=== PATIENT | female | born 1975 | race African-American/Black ===

== ENCOUNTER 2016-10-30 18:37 | Emergency (ER) | payer OTHER ==
[~2016-10-30] VITALS: Ht 165.1 cm; Wt 70.3 kg
--- NOTE | 2016-10-30 19:07 | PHYS DOC ---
Past Medical History Past Medical History: Other Additional Past Medical Histor: BIPOLAR, DEPRESSION Past Surgical History: No Surgical History Additional Past Surgical Histo: right arm wound Alcohol Use: Occasionally Drug Use: None Adult General Chief Complaint Chief Complaint: ALLERGIC REACTION HPI HPI Patient is a 40 year old female who presents with c/o tongue swelling. Patient reports this morning she had onset of tongue swelling. No clear inciting or mitigating factors. No difficulty breathing. No new meds. No prior similar episodes. No rash or other acute complaints. Review of Systems Review of Systems Constitutional: Denies fever or chills Eyes: Denies change in visual acuity or eye pain HENT: Tongue swellnig. Denies nasal congestion or sore throat Respiratory: Denies cough or shortness of breath Cardiovascular: Denies chest pain GI: Denies abdominal pain, nausea, vomiting, bloody stools or diarrhea : Denies dysuria or hematuria Musculoskeletal: Denies back pain or joint pain Integument: Denies rash or skin lesions Neurologic: Denies headache, focal weakness or sensory changes Psych: Denies SI/HI Current Medications Current Medications Current Medications Medications (Trade) Dose Ordered Sig/Fiorella Start Time Stop Time Status Last Admin Dose Admin Diphenhydramine HCl (Benadryl) 50 mg 1X ONCE 10/30/16 19:15 10/30/16 19:16 DC 10/30/16 19:32 50 MG Prednisone (Prednisone) 60 mg 1X ONCE 10/30/16 19:15 10/30/16 19:16 DC 10/30/16 19:32 60 MG Allergies Allergies Allergies Coded Allergies Type Severity Reaction Last Updated Verified Penicillins Allergy Intermediate Rash 09/26/15 Yes Physical Exam Physical Exam Constitutional: Well developed, well nourished, no acute distress, non-toxic appearance HENT: Normocephalic, atraumatic. Tongue minimally swollen if at all; airway widely patent; no lip or facial swelling Eyes: EOMI, conjunctiva normal, no discharge Neck: Normal range of motion, no stridor Cardiovascular: Heart rate normal, regular rhythm, no murmur Lungs & Thorax: Bilateral breath sounds clear to auscultation Abdomen: Bowel sounds normal, soft, non-distended, no TTP Skin: Warm, dry, no erythema, no rash Neurologic: Alert and oriented X 3, no gross deficits noted Psychologic: Flat affect Current Patient Data Vital Signs Vital Signs Date Time Temp Pulse Resp B/P Pulse Ox O2 Delivery O2 Flow Rate FiO2 10/30/16 19:30 82 14 127/76 100 Room Air 10/30/16 18:37 99.6 99.6 EKG EKG [] Radiology/Procedures Radiology/Procedures [] Course & Med Decision Making Course & Med Decision Making Pertinent Labs and Imaging studies reviewed. (See chart for details) Patient is 40-year-old female who presents with complaint of tongue swelling. No significant tongue swelling noted on my exam. Airway widely patent, no stridor noted. However will go ahead and treat with steroids and Benadryl. Patient observed in emergency department for period of time. No progression of swelling noted. Will discharge with short course of steroids and Benadryl, instructions follow-up, strict return precautions. Dragon Disclaimer Dragon Disclaimer This electronic medical record was generated, in whole or in part, using a voice recognition dictation system. Departure Departure Impression: Primary Impression: Tongue swelling Disposition: HOME, SELF-CARE Condition: STABLE Referrals: NO PCP (PCP) Patient Instructions: Diphenhydramine capsules or tablets, Prednisone tablets Additional Instructions: Thank you for allowing us to provide care today in the Emergency Department. Take the provided medication as directed. Do not take your hydroxyzine while you 're taking the Benadryl. Schedule a follow up appointment with your primary care doctor. Return promptly to the Emergency Department if you develop any new or concerning symptoms, such as difficulty breathing. Scripts Diphenhydramine Hcl (Benadryl)25 Mg [id number] Mg PO Q6HRS 3 Days Prov:ANTWAN CUEVAS MD 10/30/16 Prednisone 50 Mg Tablet1 Tab PO DAILY #3 TAB start taking 10/31/16 Prov:ANTWAN CUEVAS MD 10/30/16 ANTWAN CUEVAS MD Oct 30, 2016 19:07
[2016-10-30] MEDS ORDERED: PREDNISONE 20 MG TABLET PO ONE (19:15)
[2016-10-30] MEDS ORDERED: DIPHENHYDRAMINE HCL 25 MG CAPSULE PO ONE (19:15)
[2016-10-30 19:30] VITALS: BP 127/76
[2016-10-30] MEDS ORDERED: DIPH25CA58 PO (19:42)
[2016-10-30] MEDS ORDERED: PRED50TA PO (19:42)
== END 2016-10-30 19:53 | disposition home or self-care (01) ==
LOC: ER 18:37
DX: K14.8 Other diseases of tongue (principal); F31.9 Bipolar disorder, unspecified; Z88.0 Allergy status to penicillin
CPT/HCPCS: 99284; J7512; Q0163

== ENCOUNTER 2016-11-06 19:30 | Emergency (ER) | payer OTHER ==
[~2016-11-06] VITALS: Ht 165.1 cm; Wt 70.3 kg
[~2016-11-06 19:30] MED LIST: DIPH25CA58 PO; PRED50TA PO
[2016-11-06 19:56] VITALS: BP 115/85
[2016-11-06 20:24] LABS: BILIRUBIN,URINE NEGATIVE (NEG); GLUCOSE,URINE NEGATIVE (NEG); NITRITE,URINE NEGATIVE (NEG); PROTEIN,URINE NEGATIVE (NEG-TRACE)
[2016-11-06 20:31] LABS: BARBITURATES NEG (NEG); BENZODIAZEPINES NEG (NEG); CANNABINOIDS NEG (NEG); COCAINE POS (NEG); METHADONE NEG (NEG); OPIATES NEG (NEG); PHENCYCLIDINE NEG (NEG)
[2016-11-06 20:32] LABS: BACTERIA,URINE FEW /HPF (0-FEW); RBC,URINE 20-40 /HPF (0-2); SQUAMOUS EPITHELIAL CELL,UR MOD /LPF
[2016-11-06 20:37] LABS: ETHANOL, URINE NEG (NEG)
--- NOTE | 2016-11-06 20:44 | PHYS DOC ---
Past Medical History Past Medical History: Other Additional Past Medical Histor: BIPOLAR, DEPRESSION Past Surgical History: No Surgical History Additional Past Surgical Histo: right arm wound Alcohol Use: Occasionally Drug Use: None Adult General Chief Complaint Chief Complaint: URINARY FREQUENCY HPI HPI Patient is a 40 year old female presents emergency Department today with complaint of dysuria began approximately week ago. She denies vaginal discharge. Patient states that she began her menstrual cycle approximately 3 days ago. Patient states that she is sexually active. Review of Systems Review of Systems Constitutional: Denies fever or chills [] Eyes: Denies change in visual acuity, redness, or eye pain [] HENT: Denies nasal congestion or sore throat [] Respiratory: Denies cough or shortness of breath [] Cardiovascular: No additional information not addressed in HPI [] GI: Denies abdominal pain, nausea, vomiting, bloody stools or diarrhea [] : Denies dysuria or hematuria [] Musculoskeletal: Denies back pain or joint pain [] Integument: Denies rash or skin lesions [] Neurologic: Denies headache, focal weakness or sensory changes [] Endocrine: Denies polyuria or polydipsia [] Allergies Allergies Allergies Coded Allergies Type Severity Reaction Last Updated Verified Penicillins Allergy Intermediate Rash 09/26/15 Yes Physical Exam Physical Exam Constitutional: Well developed, well nourished, no acute distress, non-toxic appearance. Patient's initial, to me, "Hey Doc, let's get these legs spread and get things checked out!" HENT: Normocephalic, atraumatic, bilateral external ears normal, oropharynx moist, no oral exudates, nose normal. [] Eyes: PERRLA, EOMI, conjunctiva normal, no discharge. [] Neck: Normal range of motion, no tenderness, supple, no stridor. [] Cardiovascular:Heart rate regular rhythm, no murmur [] Lungs & Thorax: Bilateral breath sounds clear to auscultation [] Abdomen: Bowel sounds normal, soft, no tenderness, no masses, no pulsatile masses. [] Skin: Warm, dry, no erythema, no rash. [] Back: No tenderness, no CVA tenderness. [] Extremities: No tenderness, no cyanosis, no clubbing, ROM intact, no edema. [] Neurologic: Alert and oriented X 3, normal motor function, normal sensory function, no focal deficits noted. [] Psychologic: Patient's behavior is erratic. She is loud and uses sling terms for private area. She is somewhat easily redirected. Current Patient Data Vital Signs Vital Signs Date Time Temp Pulse Resp B/P Pulse Ox O2 Delivery O2 Flow Rate FiO2 11/06/16 19:56 97.9 112 14 99 Room Air 97.9 Lab Values Laboratory Tests Test 11/06/16 19:13 11/06/16 19:48 POC Urine HCG, Qualitative Hcg negative (Negative) Urine Collection Type Unknown Urine Color Yellow Urine Clarity Clear Urine pH 7.0 Urine Specific [place] 1.020 Urine Protein Negativemg/dL (NEG-TRACE) Urine Glucose (UA) Negativemg/dL (NEG) Urine Ketones (Stick) Negativemg/dL (NEG) Urine Blood Large (NEG) Urine Nitrite Negative (NEG) Urine Bilirubin Negative (NEG) Urine Urobilinogen Dipstick 1.0mg/dL (0.2 mg/dL) Urine Leukocyte Esterase Small (NEG) Urine RBC 20-40/HPF (0-2) Urine WBC 1-4/HPF (0-4) Urine Squamous Epithelial Cells Mod/LPF Urine Bacteria Few/HPF (0-FEW) Urine Mucus Slight/LPF Urine Opiates Screen Neg (NEG) Urine Methadone Screen Neg (NEG) Urine Barbiturates Neg (NEG) Urine Phencyclidine Screen Neg (NEG) Urine Amphetamine/Methamphetamine Neg (NEG) Urine Benzodiazepines Screen Neg (NEG) Urine Cocaine Screen Pos (NEG) Urine Cannabinoids Screen Neg (NEG) Urine Ethyl Alcohol Neg (NEG) EKG EKG [] Radiology/Procedures Radiology/Procedures [] Course & Med Decision Making Course & Med Decision Making Patient's erratic behavior poses a risk to the staff in this department. Urine, urine , urine chlamydia and gonorrhea screening and urine drug screen have been ordered. Once these initial test results are available, I will go back and speak to her with the nurse in the room. Patient refused to keep the door opening was attempting to walk around the emergency department. I went and talked to the patient about her urine test with no evidence of a urinary tract infection as well as the fact that we would go ahead and order up 2 g of azithromycin here since she is allergic to penicillin. Patient resisted against keep in the door closed. She then turned to walk away and proceeded to put her pants on. I did asked the patient was last time she used cocaine. She refuses to answer the question. I did make her aware that she tested positive for that and that is probably the reason why she is acting erratic care the emergency Department today. Cleopatra Disclaimer Cleopatra Disclaimer This electronic medical record was generated, in whole or in part, using a voice recognition dictation system. Departure Departure Impression: Primary Impression: Dysuria Additional Impressions: Cocaine abuse Concern about STD in female without diagnosis Disposition: 01 HOME, SELF-CARE Condition: STABLE Referrals: NO PCP (PCP) Patient Instructions: Cocaine Abuse-Brief, Dysuria-Brief Additional Instructions: 1. Your urine test today showed no evidence of a urinary tract infection. You expressed a concern for STDs. Those results will not be available for 2-3 days. 2. You received a dose of an antibiotic here in the emergency room called azithromycin. The dose given will cover both gonorrhea and chlamydia. 3. Urine drug screen today is positive for cocaine. 4. Review the discharge instructions provided for self-care and reasons to return to the emergency department. Problem Qualifiers REBECCA WELDON Nov 06, 2016 20:44
[2016-11-06] MEDS ORDERED: AZITHROMYCIN 250 MG TABLET PO ONE (21:30)
== END 2016-11-06 21:17 | disposition home or self-care (01) ==
LOC: ER 19:30
DX: R30.0 Dysuria (principal); F14.10 Cocaine abuse, uncomplicated; Z88.0 Allergy status to penicillin
CPT/HCPCS: 80305; 81001; 81025; 87086; 87491; 87591; 99284; Q0144; G0481

== ENCOUNTER 2017-01-19 22:54 | Emergency (ER) | payer OTHER ==
[~2017-01-19] VITALS: Ht 167.6 cm; Wt 73.0 kg
[2017-01-19 23:05] VITALS: BP 128/80
[2017-01-19 23:10] LABS: BILIRUBIN,URINE NEGATIVE (NEG); GLUCOSE,URINE NEGATIVE (NEG); NITRITE,URINE NEGATIVE (NEG); PH,URINE 5.5; PROTEIN,URINE NEGATIVE (NEG-TRACE); UROBILINOGEN,URINE 0.2 mg/dL (0.2 mg/dL)
[2017-01-19 23:17] LABS: BACTERIA,URINE FEW /HPF (0-FEW); RBC,URINE TNTC /HPF (0-2)
[2017-01-19 23:18] LABS: SQUAMOUS EPITHELIAL CELL,UR FEW /LPF
[2017-01-19] MEDS ORDERED: GUAI-42 PO (23:18)
[2017-01-19] MEDS ORDERED: CIPR500T94 PO (23:18)
[2017-01-19] MEDS ORDERED: PHEN-318 PO (23:18)
--- NOTE | 2017-01-19 23:18 | PHYS DOC ---
Past Medical History Past Medical History: Arthritis, Bipolar, GERD, Other Additional Past Medical Histor: BIPOLAR, DEPRESSION Past Surgical History: No Surgical History, Additional Past Surgical Histo: right arm wound Smoking: Cigarettes, 1 Pack Per Day Alcohol Use: Occasionally Drug Use: None Adult General Chief Complaint Chief Complaint: PAIN ON URINATION [facility] Patient is a pleasant 41-year-old self-proclaimed not female without a prior history of tubal ligation presents with UTI symptoms that began earlier today. She describes urgency frequency and dysuria with no vaginal bleeding or discharge. She does have a "touch the trich" that she completed a course of antibiotics for appropriate by her primary care doctor who picked up the disease during a routine physical exam finding. Patient denies any back pain, abdominal pain, fevers, chills, nausea, vomiting, diarrhea, hematuria or vaginal discharge at this time. Patient has also noted a nonproductive cough that began today as well without URI symptoms, runny nose, ear pain, ear drainage,facial or other complaint. This patient does describe a little urinary incontinence secondary to stress incontinence from coughing. Patient denies any travel, recent antibiotics besides the treatment for trichomoniasis. Patient is a smoker does not use drugs but does drink alcohol on occasion. At this point patient will have urinalysis and urine hCG completed and a chest x- ray looking for signs of pneumonia versus bronchitis. Review of Systems Review of Systems Constitutional: Denies fever or chills [] Eyes: Denies change in visual acuity, redness, or eye pain [] HENT: Denies nasal congestion or sore throat [] Respiratory: He does complain of a nonproductive cough without shortness of breath or nasal congestion. Cardiovascular: No additional information not addressed in HPI [] GI: Denies abdominal pain, nausea, vomiting, bloody stools or diarrhea [] : This patient does complain of dysuria urgency or frequency without vaginal discharge bleeding or hematuria. Musculoskeletal: Denies back pain or joint pain [] Integument: Denies rash or skin lesions [] Neurologic: Denies headache, focal weakness or sensory changes [] Endocrine: Denies polyuria or polydipsia [] Allergies Allergies Allergies Coded Allergies Type Severity Reaction Last Updated Verified Penicillins Allergy Intermediate Rash 09/26/15 Yes Physical Exam Physical Exam vital signs within normal limits as recorded by nursing staff. Constitutional: Well developed, well nourished, no acute distress, non-toxic appearance. [] HENT: Normocephalic, atraumatic, bilateral external ears normal, oropharynx moist, no oral exudates, nose normal. [] Eyes: PERRLA, EOMI, conjunctiva normal, no discharge. [] Neck: Normal range of motion, no tenderness, supple, no stridor. [] Cardiovascular:Heart rate regular rhythm, no murmur [] Lungs & Thorax: Bilateral breath sounds clear to auscultation [] Abdomen: Bowel sounds normal, soft, no tenderness, no masses, no pulsatile masses. [] Back: No tenderness, no CVA tenderness. [] Current Patient Data Vital Signs Vital Signs Date Time Temp Pulse Resp B/P (MAP) Pulse Ox O2 Delivery O2 Flow Rate FiO2 01/19/17 23:05 98.1 80 20 99 Room Air 98.1 Lab Values Laboratory Tests Test 01/19/17 22:05 01/19/17 22:57 POC Urine HCG, Qualitative Hcg negative (Negative) Urine Collection Type Unknown Urine Color Yellow Urine Clarity Clear Urine pH 5.5 Urine Specific [place] <=1.005 Urine Protein Negative mg/dL (NEG-TRACE) Urine Glucose (UA) Negative mg/dL (NEG) Urine Ketones (Stick) Negative mg/dL (NEG) Urine Blood Large (NEG) Urine Nitrite Negative (NEG) Urine Bilirubin Negative (NEG) Urine Urobilinogen Dipstick 0.2 mg/dL (0.2 mg/dL) Urine Leukocyte Esterase Trace (NEG) Urine RBC Tntc /HPF (0-2) Urine WBC 1-4 /HPF (0-4) Urine Squamous Epithelial Cells Few /LPF Urine Bacteria Few /HPF (0-FEW) EKG EKG [] Radiology/Procedures Radiology/Procedures [] Chest x-ray 0306 01/19/[address] Winn is two-view AP and lateral chest x-ray with no acute infiltrate there is some increased perihilar hilar markings L acute evidence of pleural effusion pericardial effusion with normal cardiac shadow no tortuous aorta no evidence pneumothorax Course & Med Decision Making Course & Med Decision Making Pertinent Labs and Imaging studies reviewed. (See chart for details) after patient's dysuria urgency or frequency urinalysis does demonstrate some bacteria , but blood cells although epithelia cells please patient's symptoms warrant treatment. We'll attempt to treat bronchitis with albuterol inhaler and a respiratory fluoroquinolone for her UTI and her bronchitis. Patient will be encouraged to quit smoking follow-up with her primary care doctor to continue treatment of her symptoms in the future. Impression: UTI, bronchitis, smoker. Disposition: PCP follow-up in 12-24 hours if symptoms continue prescribed albuterol, Cipro, Pyridium, [] Dragon Disclaimer Dragon Disclaimer This electronic medical record was generated, in whole or in part, using a voice recognition dictation system. Departure Departure Impression: Primary Impression: Bronchitis Additional Impressions: Urinary tract infection Stress incontinence Disposition: HOME, SELF-CARE Condition: IMPROVED Referrals: NO PCP (PCP) Patient Instructions: Acute Bronchitis, Urinary Tract Infection Scripts Albuterol Sulfate (PROAIR HFA INHALER) 8.5 Gm Hfa.aer.ad 1 PUFF INH PRN Q6HRS Y for SHORTNESS OF BREATH for 7 Days, INHALER 0 Refills Prov: ZEV WINN MD 01/19/17 Phenazopyridine Hcl (PYRIDIUM) 200 Mg Tablet 200 MG PO TID for 3 Days, #9 TAB Prov: ZEV WINN MD 01/19/17 Guaifenesin/Dextromethorphan (MUCINEX DM ER 600-30 MG TABLET) 1 Each Tab.er.12h 1 TAB PO PRN Q12HRS, #20 TAB Prov: ZEV WINN MD 01/19/17 Ciprofloxacin Hcl (CIPRO) 500 Mg Tablet 1 TAB PO BID, #20 TAB Prov: ZEV WINN MD 01/19/17 Problem Qualifiers ZEV WINN MD Jan 19, 2017 23:18
[2017-01-19] MEDS ORDERED: PROAIR HFA8.5 GM INH (23:41)
--- NOTE | 2017-01-20 07:23 | RAD ---
Exam: PA and lateral chest radiograph History: Cough beginning tonight. Comparison: 01/06/2015. Findings: Cardiomediastinal silhouette is within normal limits for size. Bilateral lung kohli are free of focal infiltrate. No pleural effusion is seen. Impression: No acute cardiopulmonary process.
== END 2017-01-19 23:43 | disposition home or self-care (01) ==
LOC: ER 22:54
DX: J40 Bronchitis, not specified as acute or chronic (principal); N39.0 Urinary tract infection, site not specified; N39.46 Mixed incontinence; M19.90 Unspecified osteoarthritis, unspecified site; F31.9 Bipolar disorder, unspecified; K21.9 Gastro-esophageal reflux disease without esophagitis; F17.210 Nicotine dependence, cigarettes, uncomplicated; Z88.0 Allergy status to penicillin
CPT/HCPCS: 71020; 81001; 81025; 87086; 99285-25

== ENCOUNTER 2017-01-22 12:12 | Emergency (ER) | payer OTHER ==
[~2017-01-22] VITALS: Ht 170.2 cm; Wt 73.0 kg
[~2017-01-22 12:12] MED LIST changes: +CIPR500T94 PO; +GUAI-107 PO; +PHEN-318 PO; +PROAIR HFA8.5 GM INH
[2017-01-22 12:54] VITALS: BP 128/72
--- NOTE | 2017-01-22 13:20 | PHYS DOC ---
Past Medical History Past Medical History: Arthritis, Bipolar, GERD, Other Additional Past Medical Histor: BIPOLAR, DEPRESSION Past Surgical History: No Surgical History, Additional Past Surgical Histo: right arm wound Alcohol Use: Occasionally Drug Use: None Adult General Chief Complaint Chief Complaint: PSYCH EVALUATION HPI HPI Patient is a 41 year old female with a history of arthritis, bipolar, who presents today with bilateral lower extremity pain specifically her feet. Please see ED course for further information. Review of Systems Review of Systems Constitutional: Denies fever or chills [] Eyes: Denies change in visual acuity, redness, or eye pain [] HENT: Denies nasal congestion or sore throat [] Respiratory: Denies cough or shortness of breath [] Cardiovascular: No additional information not addressed in HPI [] GI: Denies abdominal pain, nausea, vomiting, bloody stools or diarrhea [] : Denies dysuria or hematuria [] Musculoskeletal:foot pain Integument: Denies rash or skin lesions [] Neurologic: Denies headache, focal weakness or sensory changes [] Endocrine: Denies polyuria or polydipsia [] Allergies Allergies Allergies Coded Allergies Type Severity Reaction Last Updated Verified Penicillins Allergy Intermediate Rash 09/26/15 Yes Physical Exam Physical Exam Constitutional: Well developed, well nourished, no acute distress, non-toxic appearance. [] HENT: Normocephalic, atraumatic, bilateral external ears normal, oropharynx moist, no oral exudates, nose normal. [] Eyes: PERRLA, EOMI, conjunctiva normal, no discharge. [] Neck: Normal range of motion, no tenderness, supple, no stridor. [] Cardiovascular:Heart rate regular rhythm, no murmur [] Lungs & Thorax: Bilateral breath sounds clear to auscultation [] Abdomen: Bowel sounds normal, soft, no tenderness, no masses, no pulsatile masses. [] Skin: Warm, dry, no erythema, no rash. [] Back: No tenderness, no CVA tenderness. [] Extremities: No tenderness, no cyanosis, no clubbing, ROM intact, no edema. [] Neurologic: Alert and oriented X 3, normal motor function, normal sensory function, no focal deficits noted. [] Psychologic: Affect normal, judgement normal, mood normal. [] Current Patient Data Vital Signs Vital Signs Date Time Temp Pulse Resp B/P (MAP) Pulse Ox O2 Delivery O2 Flow Rate FiO2 01/22/17 12:54 98.1 88 20 128/72 (90) 99 Room Air 98.1 EKG EKG [] Radiology/Procedures Radiology/Procedures [] Course & Med Decision Making Course & Med Decision Making Pertinent Labs and Imaging studies reviewed. (See chart for details) Patient presented to the ED and signed in to be seen for foot pain bilaterally. The RN went in to talk to patient and do a triage. Patient has been refusing to talk to her. Patient started she feels like she is, going to harm somebody and will not give anymore information. She told the RN she does not want to talk to her. RN left the room and reported information to me. I walked into her room and asked patient what we can do for her. She states she does not want to be seen by me. I asked patient if she wants to be seen by someone else, she states she does not want to be seen by anyone. I asked patient why she is in the hospital if she does not want to be seen. She states she does not want to talk to me or anyone of us. Informed patient it will be hard to take care of her if she is refusing to be cared for at this point we may to consider having her discharged from the emergency room if she does not want to be seen. She has been very loud and belligerent. She is refusing care. We called security. They tried talking to her. She continued to refuse to talk to them. Patient informed the nurse she was kicked out of [facility] today and somehow came to [facility]. Nursing staff state patient has arrest warrants on the [place] side and she is informing nurses she wants to be arrested and go to [facility] or go to [facility]. We considered calling PAT but she is refusing to talk to anyone but is talking to security. 13:19 [employer] in the department. They recommended she gets a curb voucher and taken to [facility] ([place]) for flask pusher help. Cleopatra Disclaimer Dragon Disclaimer This electronic medical record was generated, in whole or in part, using a voice recognition dictation system. Departure Departure Impression: Primary Impression: Foot pain, bilateral Additional Impression: Bipolar disorder Disposition: HOME, SELF-CARE Condition: STABLE Referrals: NO PCP (PCP) Problem Qualifiers Additional Impression: Bipolar disorder Active/Remission status: currently active Current bipolar episode type: mixed Current episode severity: mild Qualified Codes: F31.61 - Bipolar disorder, current episode mixed, mild MUTSAMANTHA SWARTZ APRN Jan 22, 2017 13:20
== END 2017-01-22 13:18 | disposition home or self-care (01) ==
LOC: ER 12:12
DX: M79.672 Pain in left foot (principal); M79.671 Pain in right foot; F31.61 Bipolar disorder, current episode mixed, mild; K21.9 Gastro-esophageal reflux disease without esophagitis; M19.90 Unspecified osteoarthritis, unspecified site; Z88.0 Allergy status to penicillin
CPT/HCPCS: 99284

== ENCOUNTER 2017-03-26 03:41 | Emergency (ER) | payer OTHER ==
[~2017-03-26] VITALS: Ht 167.6 cm; Wt 65.8 kg
[2017-03-26 03:48] VITALS: BP 140/93
--- NOTE | 2017-03-26 03:52 | PHYS DOC ---
Past Medical History Past Medical History: Arthritis, Bipolar, GERD, Other Additional Past Medical Histor: BIPOLAR, DEPRESSION Past Surgical History: Additional Past Surgical Histo: right arm wound Smoking: Cigarettes Alcohol Use: Occasionally Drug Use: None Adult General Chief Complaint Chief Complaint: BACK PAIN - NO INJURY HPI HPI Patient is a 41 year old female who presents with abdominal and back pain. She was brought in by EMS from home (lives with her mother). She was seen yesterday at [facility] for bipolar disorder. She states the pain is lower abdomen and lower back. No nausea or vomiting. No blood in urine. No fevers. Review of Systems Review of Systems Constitutional: Denies fever or chills Respiratory: Denies cough or shortness of breath GI: some abdominal pain, nausea, vomiting, bloody stools or diarrhea : Denies dysuria or hematuria Musculoskeletal: lower back pain or joint pain. no skin changes. Integument: Denies rash or skin lesions. She has a swelling in her right arm pit and a healed laceration to her right shoulder that "has a stitch still in it." Allergies Allergies Allergies Coded Allergies Type Severity Reaction Last Updated Verified Penicillins Allergy Intermediate Rash 09/26/15 Yes Physical Exam Physical Exam Constitutional: Well developed, well nourished, no acute distress, non-toxic appearance. HENT: Normocephalic, atraumatic, bilateral external ears normal, oropharynx moist, no oral exudates, nose normal. Eyes: PERRLA, EOMI, conjunctiva normal, no discharge. Neck: Normal range of motion, no tenderness, supple, no stridor. Cardiovascular:Heart rate regular rhythm, no murmur Lungs & Thorax: Bilateral breath sounds clear to auscultation Abdomen: Bowel sounds normal, soft, no tenderness, no masses, no pulsatile masses. Skin: Warm, dry, no erythema, no rash. Healed laceration right shoulder with one staple placed. Back: No tenderness, no CVA tenderness. Extremities: No tenderness, no cyanosis, no clubbing, ROM intact, no edema. Right axilla. Swelling; non fluctuant in axilla. No erythema. Neurologic: Alert and oriented X 3, normal motor function, normal sensory function, no focal deficits noted. Psychologic: Affect normal, judgement normal, mood normal. Current Patient Data Vital Signs Vital Signs Date Time Temp Pulse Resp B/P (MAP) Pulse Ox O2 Delivery O2 Flow Rate FiO2 03/26/17 03:48 97.8 102 19 140/93 (109) 98 Room Air 97.8 Lab Values Laboratory Tests Test 03/26/17 03:14 03/26/17 04:04 POC Urine HCG, Qualitative Hcg negative (Negative) Urine Collection Type U cath Urine Color Yellow Urine Clarity Cloudy Urine pH 5.0 Urine Specific [place] 1.025 Urine Protein 30 mg/dL (NEG-TRACE) Urine Glucose (UA) Negative mg/dL (NEG) Urine Ketones (Stick) Negative mg/dL (NEG) Urine Blood Negative (NEG) Urine Nitrite Negative (NEG) Urine Bilirubin Negative (NEG) Urine Urobilinogen Dipstick 0.2 mg/dL (0.2 mg/dL) Urine Leukocyte Esterase Small (NEG) Urine RBC 0 /HPF (0-2) Urine WBC 1-4 /HPF (0-4) Urine Squamous Epithelial Cells Occ /LPF Urine Amorphous Sediment Present /HPF Urine Bacteria 0 /HPF (0-FEW) Urine Mucus Mod /LPF Course & Med Decision Making Course & Med Decision Making Pertinent Labs reviewed. (See chart for details) Evaluated patient upon arrival. Staple removed from laceration (well healed and all other carrie removed at [facility]). The axilla swelling is consistent with lymph node swelling or cystic structure. Given referral to general surgery for appropriate evaluation. At 0430 AM UA back with LE and WBC. Will place on bactrim for coverage of skin and urine. Dragon Disclaimer Dragon Disclaimer This electronic medical record was generated, in whole or in part, using a voice recognition dictation system. Departure Departure Impression: Primary Impression: Back pain Additional Impressions: Swelling in right armpit Healing laceration Disposition: HOME, SELF-CARE Condition: STABLE Referrals: NO PCP (PCP) CARLY KEMP MD Additional Instructions: YOU HAVE A SWELLING IN YOUR RIGHT ARMPIT. THIS CAN BE A SWOLLEN LYMPH NODE OR A CYST. YOU WERE PLACED ON AN ANTIBIOTIC. YOU NEED TO SEE A SURGEON TO DETERMINE IF IT NEEDS TO BE RESECTED OR NOT. CALL THE SURGEON PROVIDED ON MONDAY TO SET UP AN APPOINTMENT. YOU HAD ONE STAPLE LEFT IN YOUR LACERATION AND THAT WAS REMOVED HERE. Scripts Sulfamethoxazole/Trimethoprim (BACTRIM DS TABLET) 1 Each Tablet 1 TAB PO BID, #14 TAB Prov: LIZA WARD MD 03/26/17 Problem Qualifiers LIZA WARD MD Mar 26, 2017 03:52
[2017-03-26] MEDS ORDERED: SULF1TAB24 PO (04:03)
[2017-03-26 04:12] LABS: BILIRUBIN,URINE NEGATIVE (NEG); GLUCOSE,URINE NEGATIVE (NEG); NITRITE,URINE NEGATIVE (NEG); PROTEIN,URINE 30 mg/dL (NEG-TRACE); UROBILINOGEN,URINE 0.2 mg/dL (0.2 mg/dL)
[2017-03-26 04:26] LABS: BACTERIA,URINE 0 /HPF (0-FEW); RBC,URINE 0 /HPF (0-2); SQUAMOUS EPITHELIAL CELL,UR OCC /LPF
== END 2017-03-26 04:40 | disposition home or self-care (01) ==
LOC: ER 03:41
DX: M54.5 Low back pain (principal); R22.9 Localized swelling, mass and lump, unspecified; S41.011D Laceration without foreign body of right shoulder, subsequent encounter; R10.30 Lower abdominal pain, unspecified; F17.210 Nicotine dependence, cigarettes, uncomplicated; M19.90 Unspecified osteoarthritis, unspecified site; F31.9 Bipolar disorder, unspecified; K21.9 Gastro-esophageal reflux disease without esophagitis; Z88.0 Allergy status to penicillin; X58.XXXD Exposure to other specified factors, subsequent encounter; Y92.89 Other specified places as the place of occurrence of the external cause; Y99.8 Other external cause status
CPT/HCPCS: 51701; 81001; 81025; 87086; 99284-25

== ENCOUNTER 2017-06-05 09:51 | Emergency (ER) | payer OTHER ==
[~2017-06-05 09:51] MED LIST changes: -GUAI-107 PO; +GUAI-108 PO; +SULF1TAB24 PO
[2017-06-05 10:17] VITALS: BP 161/71
[2017-06-05] MEDS ORDERED: diphenhydrAMINE 50 MG/ML VIAL IM ONE (11:45)
--- NOTE | 2017-06-05 11:45 | PHYS DOC ---
Past Medical History Past Medical History: Arthritis, Bipolar, GERD, Other Additional Past Medical Histor: BIPOLAR, DEPRESSION Past Surgical History: Additional Past Surgical Histo: right arm wound Alcohol Use: Occasionally Drug Use: None Adult General Chief Complaint Chief Complaint: MULTIPLE COMPLAINTS [facility] She is a pleasant 41-year-old female who presents with dental pain bilateral ear itching skin itching and lesions underneath her armpits bilaterally. Patient is a pleasant lady is been no murmurs. Her multiple time she has a history of bipolar disorder and depression. She is presenting with 2 week history of itching of her skin of her upper and lower extremities. She denies any rash, changes in medications, exposure to outdoor insectlike tics or wheeze. Patient denies any history of scabies or bedbugs. Patient denies any fevers, chills, neck pain or neck stiffness. She also has a complaint of dental pain primarily on the right lower jaw along with the upper right gumline along the buccal and lingular mucosa. She denies any bleeding or rash. Denies any pain with hot and cold foods. Patient denies any trauma to her mouth. Patient also complains of small swollen lesions in her armpits. Although she is been seen by multiple rise in the last several weeks the symptoms have now resolved. She no longer has any symptoms of swelling and drainage. Patient denies any abdominal pain, chest pain, shortness of breath or fevers. She has complaints that started several weeks ago and now resolved. She was describing some vaginal discharge seen by her provider who placed her on a medication and now it is gone. She has no new symptoms and no wish for us to continue examination. The patient has no stated suicidal homicidal ideations or intent. She also denies any auditory or visual hallucinations her behavior somewhat bizarre with a flight of ideas. And she'll be evaluated by our psychiatric services here in the emergency department. Review of Systems Review of Systems Constitutional: Denies fever or chills [] Eyes: Denies change in visual acuity, redness, or eye pain [] HENT: Denies nasal congestion or sore throat has had itching in her ears bilaterally, with no hearing loss she also complains of dental pain and gumline pain. Respiratory: Denies cough or shortness of breath [] Cardiovascular: No additional information not addressed in HPI [] GI: Denies abdominal pain, nausea, vomiting, bloody stools or diarrhea [] : Denies dysuria or hematuria [] Musculoskeletal: Denies back pain or joint pain [] Integument: sHe describes itching without a rash in her upper and lower extremity's. sHe also describes swelling and lesions within her armpits are now resolved. Neurologic: Denies headache, focal weakness or sensory changes [] Endocrine: Denies polyuria or polydipsia [] Current Medications Current Medications Current Medications Medications (Trade) Dose Ordered Sig/Fiorella Start Time Stop Time Status Last Admin Dose Admin Diphenhydramine HCl (Benadryl) 50 mg 1X ONCE 06/05/17 11:45 06/05/17 11:46 DC 06/05/17 11:57 50 MG Allergies Allergies Allergies Coded Allergies Type Severity Reaction Last Updated Verified Penicillins Allergy Intermediate Rash 09/26/15 Yes Physical Exam Physical Exam Vital signs recorded on the chart patient is not hypoxic not febrile but has hypertension noted Constitutional: Well developed, well nourished, no acute distress, non-toxic appearance. Patient has significant flight of ideas and is difficult to follow. She is very energetic with a lot of motor agitation. HENT: Normocephalic, atraumatic, bilateral external ears normal, oropharynx moist, no oral exudates, nose normal. Her TMs are clear but there is clear the cerumen in both ears. No active and some of foreign body or insect she described in her history.[] Eyes: PERRLA, EOMI, conjunctiva normal, no discharge. [] Neck: Normal range of motion, no tenderness, supple, no stridor. [] Cardiovascular:Heart rate regular rhythm, no murmur [] Lungs & Thorax: Bilateral breath sounds clear to auscultation [] Abdomen: Bowel sounds normal, soft, no tenderness, Skin: Warm, dry, she has mild excoriations and well-healed scars in upper extremities bilaterally. Her armpits bilaterally show no signs of axillary swelling, abscesses or localized cellulitis. There is no evidence of hidradenitis[] Extremities: No tenderness, no cyanosis, no clubbing, ROM intact, no edema. [] Neurologic: Alert and oriented X 3, normal motor function, normal sensory function, no focal deficits noted. [] Psychologic: She has a very labile affect abnormal judgment and very labile mood. She is despite expressing a number flight of ideas and some of the nonsensical. She is continually saying that she wants to be despite her name say her name she is asked me multiple times to repeat the complaint she has had and she changes her story multiple times for the same breath. Current Patient Data Vital Signs Vital Signs Date Time Temp Pulse Resp B/P (MAP) Pulse Ox O2 Delivery O2 Flow Rate FiO2 06/05/17 10:17 98.5 82 19 161/71 (101) 98 Room Air 98.5 Lab Values Laboratory Tests Test 06/05/17 11:34 Urine Collection Type Unknown Urine Color Yellow Urine Clarity Clear Urine pH 5.5 Urine Specific [place] 1.015 Urine Protein Negative mg/dL (NEG-TRACE) Urine Glucose (UA) Negative mg/dL (NEG) Urine Ketones (Stick) Negative mg/dL (NEG) Urine Blood Negative (NEG) Urine Nitrite Negative (NEG) Urine Bilirubin Negative (NEG) Urine Urobilinogen Dipstick 0.2 mg/dL (0.2 mg/dL) Urine Leukocyte Esterase Negative (NEG) Urine RBC 0 /HPF (0-2) Urine WBC 0 /HPF (0-4) Urine Squamous Epithelial Cells Many /LPF Urine Bacteria Few /HPF (0-FEW) Urine Mucus Marked /LPF EKG EKG [] Radiology/Procedures Radiology/Procedures [] Course & Med Decision Making Course & Med Decision Making Pertinent Labs and Imaging studies reviewed. (See chart for details) []I'm concerned with this patient as she may be presenting in a manic episode with her bipolar disorder. Patient clearly has no signs of infection, vital signs are otherwise stable with no evidence of hypoxia or fever. Doubt encephalopathy. Psychiatric services will evaluate her at the bedside. In the interim we will clean her ears to ensure no foreign bodies noted. She is not showing any oral infection of the causing an cephalopathy. Her oropharynx is otherwise clear there is no obvious evidence of gingival inflammation and infection or dental abscess. She has some gingival tenderness and tenderness along some of the specific teeth in the lower jaw. She is also requested that we test her urine for signs of infection. Psychosis of bright at the bedside says this patient been evaluated by him before and she is at her baseline. She typically functions with this type of flight of ideas although all times. She has no normal vital signs. Except mild hypertension which is normal for patient. Urinalysis is clear. No evidence of infection patient is not . Based on [id number] urinalysis. Patient's cerumen impaction as been removed bilaterally with irrigation. Patient does has no evidence of hidradenitis or a particular rash requiring antibiotics. She does have dental caries in the right lower and left lower jaw with local tenderness to palpation with no gingival inflammation no evidence of gingivitis or anug Impression: pruritus cerumen impaction, dental caries, Dragon Disclaimer Dragon Disclaimer This electronic medical record was generated, in whole or in part, using a voice recognition dictation system. Departure Departure Impression: Primary Impression: Anxiety Additional Impressions: Bipolar affective disorder, current episode manic with psychotic symptoms Cerumen impaction Dental caries Disposition: 01 HOME, SELF-CARE Condition: IMPROVED Referrals: BELTRAN MORRISSEY MD (PCP) Patient Instructions: Cerumen Impaction, Dental Caries, Pruritus Additional Instructions: My discharge plan Follow up: In addition patient is asked to followup with their primary doctor, within a week for followup examination and to address patient's ongoing medical conditions. Patient is advised that in the Emergency Department primary complaints are addressed and only in light of known signs and symptoms. Patient should return immediately to the emergency department if new signs and symptoms develop or patient's condition worsens in any way. At time of discharge patient was in stable condition and had verbalized understanding of the discharge instructions. Scripts Clindamycin Hcl (CLINDAMYCIN HCL) 300 Mg Capsule 1 CAP PO TID, #30 CAP Prov: ZEV WINN MD 06/05/17 Hydroxyzine Pamoate (VISTARIL) 25 Mg Capsule 1 CAP PO BID, #20 CAP 1 Refill Prov: ZEV WINN MD 06/05/17 Problem Qualifiers ZEV WINN MD Jun 05, 2017 11:45
[2017-06-05 11:54] LABS: BILIRUBIN,URINE NEGATIVE (NEG); GLUCOSE,URINE NEGATIVE (NEG); NITRITE,URINE NEGATIVE (NEG); PH,URINE 5.5; PROTEIN,URINE NEGATIVE (NEG-TRACE); UROBILINOGEN,URINE 0.2 mg/dL (0.2 mg/dL)
[2017-06-05 12:06] LABS: BACTERIA,URINE FEW /HPF (0-FEW); RBC,URINE 0 /HPF (0-2); SQUAMOUS EPITHELIAL CELL,UR MANY /LPF; WBC,URINE 0 /HPF (0-4)
[2017-06-05] MEDS ORDERED: CLIN300C8 PO (12:41)
[2017-06-05] MEDS ORDERED: HYDR25CA PO (12:41)
== END 2017-06-05 12:56 | disposition home or self-care (01) ==
LOC: ER 09:51
DX: H61.23 Impacted cerumen, bilateral (principal); K02.9 Dental caries, unspecified; F30.2 Manic episode, severe with psychotic symptoms; F41.9 Anxiety disorder, unspecified; K21.9 Gastro-esophageal reflux disease without esophagitis; Z88.0 Allergy status to penicillin
CPT/HCPCS: 69209; 81001; 96372; 99284; J1200; 99283-25

== ENCOUNTER 2017-06-06 22:25 | Emergency (ER) | payer OTHER ==
[~2017-06-06] VITALS: Ht 167.6 cm; Wt 73.0 kg
[~2017-06-06 22:25] MED LIST changes: +CLIN300C8 PO; +HYDR25CA PO
[2017-06-06] MEDS ORDERED: IV NORMAL SALINE 1000ML BAG 1,000 ML IV ONE (22:45)
[2017-06-06] MEDS ORDERED: HALOPERIDOL LACTATE 5 MG/ML VIAL. IVP ONE (23:00)
[2017-06-06] MEDS ORDERED: DEXAMETHASONE SOD PHOS 4 MG/ML VIAL IV ONE (23:00)
[2017-06-06] MEDS ORDERED: METOCLOPRAMIDE HCL 10 MG/2 ML VIAL. IV ONE (23:00)
[2017-06-06] MEDS ORDERED: KETOROLAC 30 MG/ML INJ. IV ONE (23:00)
--- NOTE | 2017-06-06 23:11 | PHYS DOC ---
Past Medical History Past Medical History: Arthritis, Bipolar, GERD, Other Additional Past Medical Histor: BIPOLAR, DEPRESSION Past Surgical History: Additional Past Surgical Histo: right arm wound Alcohol Use: Occasionally Drug Use: None Adult General Chief Complaint Chief Complaint: GENERALIZED BODY ACHES HPI HPI Patient is a 41 year old F who presents with a headache and whole body pain for the past 2 years. Patient was seen last night emergency room for similar symptoms and she states she got a shot of Benadryl to test her urine sent her home. Patient states his whole body pain and headaches have been coming and going for the past 2 years and [facility] used to fill her pain scripts however they have stopped. Patient states that she's also had some vaginal discharge with recent sexual intercourse but no history of STDs. Patient would like a prescription for pain medication. Patient denies any chest pain or shortness of breath. Patient denies any nausea/vomiting/diarrhea. Patient is no other complaints. Review of Systems Review of Systems GEN: Whole body pain HEENT: Denies blurred vision, sore throat CV: Denies chest pain RESP: Denies shortness of air, cough GI: Vaginal discharge NEURO: Headache MSK: Denies weakness, joint pain/swelling Current Medications Current Medications Current Medications Medications (Trade) Dose Ordered Sig/Fiorella Start Time Stop Time Status Last Admin Dose Admin Dexamethasone Sodium Phosphate (Decadron) 10 mg 1X ONCE 06/06/17 23:00 06/06/17 23:01 DC 06/06/17 23:35 4 MG Haloperidol Lactate (Haldol) 5 mg 1X ONCE 06/06/17 23:00 06/06/17 23:01 DC 06/06/17 23:34 5 MG Ketorolac Tromethamine (Toradol) 30 mg 1X ONCE 06/06/17 23:00 06/06/17 23:01 DC 06/06/17 23:35 30 MG Metoclopramide HCl (Reglan) 10 mg 1X ONCE 06/06/17 23:00 06/06/17 23:01 DC 06/06/17 23:35 10 MG Sodium Chloride 1,000 ml @ 1,000 mls/hr 1X ONCE 06/06/17 22:45 06/06/17 23:44 DC 06/06/17 23:35 1,000 MLS/HR Allergies Allergies Allergies Coded Allergies Type Severity Reaction Last Updated Verified Penicillins Allergy Intermediate Rash 09/26/15 Yes Physical Exam Physical Exam GEN.: No apparent distress. Alert and oriented. HEENT: Head is normocephalic, atraumatic NECK: Supple. LUNGS: CTAB. HEART: RRR, S1, S2 present. Peripheral pulses intact ABDOMEN: Soft, nontender. Positive bowel sounds. : Patient deferred vaginal exam we'll obtain self swabs EXTREMITIES: Without any cyanosis. NEUROLOGIC: Normal speech, normal tone PSYCHIATRIC: Normal affect, normal mood. SKIN: No ulcerations Current Patient Data Vital Signs Vital Signs Date Time Temp Pulse Resp B/P (MAP) Pulse Ox O2 Delivery O2 Flow Rate FiO2 06/06/17 22:33 98.8 86 18 99 Room Air 98.8 Lab Values Laboratory Tests Test 06/07/17 00:45 White Blood Count 6.1 x10^3/uL (4.0-11.0) Red Blood Count 4.66 x10^6/uL (3.50-5.40) Hemoglobin 8.9 g/dL (12.0-15.5) L Hematocrit 27.8 % (36.0-47.0) L Mean Corpuscular Volume 60 fL (79-100) L Mean Corpuscular Hemoglobin 19 pg (25-35) L Mean Corpuscular Hemoglobin Concent 32 g/dL (31-37) Red Cell Distribution Width 20.7 % (11.5-14.5) H Platelet Count 231 x10^3/uL (140-400) Neutrophils (%) (Auto) 71 % (31-73) Lymphocytes (%) (Auto) 19 % (24-48) L Monocytes (%) (Auto) 7 % (0-9) Eosinophils (%) (Auto) 2 % (0-3) Basophils (%) (Auto) 1 % (0-3) Neutrophils # (Auto) 4.4 x10^3uL (1.8-7.7) Lymphocytes # (Auto) 1.2 x10^3/uL (1.0-4.8) Monocytes # (Auto) 0.4 x10^3/uL (0.0-1.1) Eosinophils # (Auto) 0.1 x10^3/uL (0.0-0.7) Basophils # (Auto) 0.0 x10^3/uL (0.0-0.2) Platelet Estimate Pending Urine Collection Type Unknown Urine Color Yellow Urine Clarity Clear Urine pH 6.5 Urine Specific [place] <=1.005 Urine Protein Negative mg/dL (NEG-TRACE) Urine Glucose (UA) Negative mg/dL (NEG) Urine Ketones (Stick) Negative mg/dL (NEG) Urine Blood Negative (NEG) Urine Nitrite Negative (NEG) Urine Bilirubin Negative (NEG) Urine Urobilinogen Dipstick 0.2 mg/dL (0.2 mg/dL) Urine Leukocyte Esterase Negative (NEG) Urine RBC Occ /HPF (0-2) Urine WBC Occ /HPF (0-4) Urine Squamous Epithelial Cells Few /LPF Urine Bacteria 0 /HPF (0-FEW) Sodium Level 140 mmol/L (136-145) Potassium Level 4.1 mmol/L (3.5-5.1) Chloride Level 106 mmol/L (98-107) Carbon Dioxide Level 25 mmol/L (21-32) Anion Gap 9 (6-14) Blood Urea Nitrogen 6 mg/dL (7-20) L Creatinine 0.8 mg/dL (0.6-1.0) Estimated GFR (Cockcroft-Gault) 95.6 BUN/Creatinine Ratio 8 (6-20) Glucose Level 96 mg/dL (70-99) Calcium Level 7.9 mg/dL (8.5-10.1) L Total Bilirubin 0.2 mg/dL (0.2-1.0) Aspartate Amino Transferase (AST) 15 U/L (15-37) Alanine Aminotransferase (ALT) 16 U/L (14-59) Alkaline Phosphatase 79 U/L (46-116) Total Protein 7.1 g/dL (6.4-8.2) Albumin 3.2 g/dL (3.4-5.0) L Albumin/Globulin Ratio 0.8 (1.0-1.7) L Laboratory Tests 06/07/17 00:45 Laboratory Tests 06/07/17 00:45 Microbiology 06/06/17 Wet Prep - Final, Complete EKG EKG [] Radiology/Procedures Radiology/Procedures CT scan of the head NAD[] Course & Med Decision Making Course & Med Decision Making Pertinent Labs and Imaging studies reviewed. (See chart for details) ED course: Patient was seen and examined emergency room CBC, CMP, UA, vaginal swabs, CT scan of the head without contrast, 30 mg Toradol, 1 L normal saline, 10 mg Reglan, 5 mg of Haldol were ordered 0139: Patient was reevaluated in which she was doing better lab work and CT findings were discussed with the patient. Made patient aware of anemia recommended short-term follow-up with PCP next one to 2 days to further evaluate for her anemic state. MDM: After reviewing the chart, CC/HPI/PMH, physical exam, [lab results], [ radiological results], I do not believe the patient has emergent medical condition warranting further workup and/or admission at this time. I do not believe the patient has acute intracranial process warranting further workup. Patient has anemia not needing emergent blood transfusion. Patient is stable for discharge. Additional verbal discharge instructions were provided to the patient and that if symptoms get worse or any new symptoms arise that are worrisome to the patient she is to return to the emergency room immediately [] Dragon Disclaimer Dragon Disclaimer This electronic medical record was generated, in whole or in part, using a voice recognition dictation system. Departure Departure Impression: Primary Impression: Headache Additional Impressions: Generalized pain Anemia Disposition: 01 HOME, SELF-CARE Condition: IMPROVED Referrals: BELTRAN ROSAS MD (PCP) Patient Instructions: Chronic Pain Additional Instructions: Please follow-up with Dr. Rosas in the next one to 2 days and return if symptoms increase Problem Qualifiers ISAAC GAONA DO Jun 06, 2017 23:11
[2017-06-07] VITALS: BP 134/65
--- NOTE | 2017-06-07 00:34 | RAD ---
CT head without contrast TECHNIQUE: [address] imaging skull base to vertex. HISTORY: Headaches for several months. FINDINGS: No intracranial hemorrhage, mass, hydrocephalus, extra-axial fluid collections or infarction. Orbits, mastoids, paranasal sinuses and bones are unremarkable. IMPRESSION: No acute intracranial CT abnormality. Exposure: One or more of the following individualized dose reduction techniques were utilized for this examination: 1. Automated exposure control 2. Adjustment of the mA and/or kV according to patient size 3. Use of iterative reconstruction technique Electronically signed by: Jorge Alberto Grissom MD (06/07/2017 12:31 AM) [facility]
[2017-06-07 00:54] LABS: BILIRUBIN,URINE NEGATIVE (NEG); GLUCOSE,URINE NEGATIVE (NEG); NITRITE,URINE NEGATIVE (NEG); PH,URINE 6.5; PROTEIN,URINE NEGATIVE (NEG-TRACE); UROBILINOGEN,URINE 0.2 mg/dL (0.2 mg/dL)
[2017-06-07 00:57] LABS: BASO % 1 % (0-3); EOS % 2 % (0-3); HEMATOCRIT 27.8 % (36.0-47.0); HEMOGLOBIN 8.9 g/dL (12.0-15.5); LYMPH # 1.2 x10^3/uL (1.0-4.8); LYMPH % 19 % (24-48); MEAN CORPUSCULAR HEMOGLOBIN 19 pg (25-35); MEAN CORPUSCULAR HGB CONC 32 g/dL (31-37); MEAN CORPUSCULAR VOLUME 60 fL (79-100); MONO % 7 % (0-9); NEUT % 71 % (31-73); PLATELET COUNT 231 x10^3/uL (140-400); RED BLOOD COUNT 4.66 x10^6/uL (3.50-5.40); RED CELL DISTRIBUTION WIDTH 20.7 % (11.5-14.5); WHITE BLOOD COUNT 6.1 x10^3/uL (4.0-11.0)
[2017-06-07 01:07] LABS: CALCIUM 7.9 mg/dL (8.5-10.1); CREATININE 0.8 mg/dL (0.6-1.0); GFR 95.6; POTASSIUM 4.1 mmol/L (3.5-5.1)
[2017-06-07 01:12] LABS: RBC,URINE OCC /HPF (0-2); WBC,URINE OCC /HPF (0-4)
[2017-06-07 01:13] LABS: ALBUMIN 3.2 g/dL (3.4-5.0); ALBUMIN/GLOBULIN RATIO 0.8 (1.0-1.7); BACTERIA,URINE 0 /HPF (0-FEW); SQUAMOUS EPITHELIAL CELL,UR FEW /LPF; TOTAL BILIRUBIN 0.2 mg/dL (0.2-1.0); TOTAL PROTEIN 7.1 g/dL (6.4-8.2)
[2017-06-07 02:30] LABS: PLT ESTIMATE ADEQUATE (ADEQUATE); POLYCHROMASIA SLIGHT
[2017-06-07 02:31] LABS: HYPOCHROMIA SLIGHT; MICROCYTOSIS MARKED; OVALOCYTES OCC; POIKILOCYTOSIS SLIGHT; ROULEAUX PRESENT; TARGET CELLS OCC
== END 2017-06-07 01:52 | disposition home or self-care (01) ==
LOC: ER 22:25
DX: R51 Headache (principal); R10.84 Generalized abdominal pain; D64.9 Anemia, unspecified; M79.1 Myalgia; N89.8 Other specified noninflammatory disorders of vagina; K21.9 Gastro-esophageal reflux disease without esophagitis; F31.9 Bipolar disorder, unspecified; M19.90 Unspecified osteoarthritis, unspecified site; Z88.0 Allergy status to penicillin
CPT/HCPCS: 36415; 70450; 80053; 81001; 85025; 87491; 87591; 96361; 96374; 96375; 99285; J1100; J1630; J1885; J2765; J7030; Q0111

== ENCOUNTER 2017-06-07 02:15 | Emergency (ER) | payer OTHER ==
[2017-06-07 02:20] VITALS: BP 145/57
--- NOTE | 2017-06-07 02:47 | PHYS DOC ---
Past Medical History Past Medical History: Arthritis, Bipolar, GERD, Other Additional Past Medical Histor: BIPOLAR, DEPRESSION Past Surgical History: Additional Past Surgical Histo: right arm wound Alcohol Use: Occasionally Drug Use: None Adult General Chief Complaint Chief Complaint: TONGUE SWELLING/INJURY HPI HPI Patient is a 41 year old F who presents with tongue swelling. Patient was is discharged approximately 30 minutes ago from the emergency room and while in triage calling for a ride she's had her tongue started to swell. Patient had no difficulty talking. Patient was brought back into triage and reexamined. Patient had no difficult swallowing. Patient had no shortness of breath. Patient has no urticarial rash. Patient had no other complaints. After sitting triage for approximately 15 minutes she said the tongue swelling has completely resolved. Review of Systems Review of Systems GEN: Denies fevers, chills, sweats HEENT: Tongue swelling CV: Denies chest pain RESP: Denies shortness of air, cough GI: Denies n/v/d NEURO: Denies confusion, dizziness MSK: Denies weakness, joint pain/swelling Allergies Allergies Allergies Coded Allergies Type Severity Reaction Last Updated Verified Penicillins Allergy Intermediate Rash 09/26/15 Yes Physical Exam Physical Exam GEN.: No apparent distress. Alert and oriented. HEENT: Head is normocephalic, atraumatic NECK: Supple. LUNGS: CTAB. HEART: RRR, S1, S2 present. Peripheral pulses intact ABDOMEN: Soft, nontender. Positive bowel sounds. EXTREMITIES: Without any cyanosis. NEUROLOGIC: Normal speech, normal tone PSYCHIATRIC: Normal affect, normal mood. SKIN: No ulcerations Current Patient Data Vital Signs Vital Signs Date Time Temp Pulse Resp B/P (MAP) Pulse Ox O2 Delivery O2 Flow Rate FiO2 06/07/17 02:20 97.9 77 20 100 Room Air 97.9 EKG EKG [] Radiology/Procedures Radiology/Procedures [] Course & Med Decision Making Course & Med Decision Making Pertinent Labs and Imaging studies reviewed. (See chart for details) MDM: After reviewing the chart, CC/HPI/PMH, physical exam, I do not believe the patient have an acute anaphylactic reaction warranting further workup and/or admission at this time. On examination in triage patient's tongue is not swollen she's having no dysarthria or dysphasia or shortness of breath. Patient stable for discharge. Additional verbal discharge instructions were provided to the patient and that if symptoms get worse or any new symptoms arise that are worrisome to the patient she is to return to the emergency room immediately [] Dragon Disclaimer Dragon Disclaimer This electronic medical record was generated, in whole or in part, using a voice recognition dictation system. Departure Departure Impression: Primary Impression: Tongue swelling Disposition: HOME, SELF-CARE Condition: IMPROVED Referrals: BELTRAN MORRISSEY MD (PCP) Patient Instructions: Allergies, Generic Additional Instructions: Please follow-up with your family doctor next one to 2 days ISAAC GAONA DO Jun 07, 2017 02:47
== END 2017-06-07 03:00 | disposition home or self-care (01) ==
LOC: ER 02:15
DX: K14.8 Other diseases of tongue (principal); K21.9 Gastro-esophageal reflux disease without esophagitis; M19.90 Unspecified osteoarthritis, unspecified site; F31.9 Bipolar disorder, unspecified; Z88.0 Allergy status to penicillin
CPT/HCPCS: 99281

== ENCOUNTER 2018-04-01 01:43 | Emergency (ER) | payer MEDICARE, OTHER ==
[~2018-04-01] VITALS: Ht 167.6 cm; Wt 78.5 kg
[2018-04-01 01:45] VITALS: BP 142/67
[2018-04-01 03:22] LABS: BILIRUBIN,URINE NEGATIVE (NEG); CLARITY,URINE CLEAR; COLOR,URINE YELLOW; NITRITE,URINE NEGATIVE (NEG); PROTEIN,URINE NEGATIVE (NEG-TRACE); UROBILINOGEN,URINE 0.2 mg/dL (0.2 mg/dL)
[2018-04-01] MEDS ORDERED: AZITHROMYCIN 250 MG TABLET. PO ONE (03:30)
[2018-04-01] MEDS ORDERED: cefTRIAXone IM 250 MG VIAL IM ONE (03:30)
[2018-04-01 03:31] LABS: BACTERIA,URINE 0 /HPF (0-FEW); RBC,URINE 0 /HPF (0-2); SQUAMOUS EPITHELIAL CELL,UR FEW /LPF; WBC,URINE 0 /HPF (0-4)
--- NOTE | 2018-04-01 03:43 | PHYS DOC ---
Past Medical History Past Medical History: Hypertension Additional Past Medical Histor: BIPOLAR, DEPRESSION Past Surgical History: Additional Past Surgical Histo: right arm wound Alcohol Use: Occasionally Drug Use: None Adult General Chief Complaint Chief Complaint: ITCHING HPI HPI Patient is a 42-year-old female who presents with complaint of some kind of a rash in between her legs has been present for the last few days. Patient states that recently she had been walking a lot in her legs had been rubbing up against each other and she had some skin breakdown. She states that she has been placing Vaseline on the area to protect it but it's not getting better. Patient also indicates that she has insurance right now so she wants STD testing. She denies any vaginal discharge or foul vaginal odor. She just states that she would like to be treated just in case. She is requesting a shot and pills to be treated for any possible STDs. She denies chest pain or shortness of breath. She denies any abdominal pain or urinary discomfort. Review of Systems Review of Systems Constitutional: Denies fever or chills [] Respiratory: Denies cough or shortness of breath [] Cardiovascular: Denies chest pain[] GI: Denies abdominal pain, nausea, vomiting or diarrhea [] : Denies dysuria or hematuria [] Integument: Complains of skin breakdown in her thighs[] All other systems were reviewed and found to be within normal limits, except as documented in this note. Current Medications Current Medications Current Medications Medications (Trade) Dose Ordered Sig/Foirella Start Time Stop Time Status Last Admin Dose Admin Azithromycin (Zithromax) 1,000 mg 1X ONCE 04/01/18 03:30 04/01/18 03:31 DC Ceftriaxone Sodium (Rocephin Im) 250 mg 1X ONCE 04/01/18 03:30 04/01/18 03:31 DC Allergies Allergies Allergies Coded Allergies Type Severity Reaction Last Updated Verified Penicillins Allergy Intermediate Rash 09/26/15 Yes Physical Exam Physical Exam Constitutional: Well developed, well nourished, no acute distress, non-toxic appearance. [] Neck: Normal range of motion, no tenderness, supple, no stridor. [] Cardiovascular:Heart rate regular rhythm, no murmur [] Lungs & Thorax: Bilateral breath sounds clear to auscultation [] Abdomen: Bowel sounds normal, soft, no tenderness. [] Skin: Warm, dry, no erythema, no rash. [] Genitourinary: Area of patient's concern of inner thighs as well as external genitalia were evaluated with nurse pacs administrator present. There is a small area of skin breakdown noted to the left inner thigh which appears to be healing well. No lesions noted to the external genitalia and no discharge noted. Current Patient Data Vital Signs Vital Signs Date Time Temp Pulse Resp B/P (MAP) Pulse Ox O2 Delivery O2 Flow Rate FiO2 04/01/18 01:45 98.1 77 18 142/67 (92) 97 Room Air 98.1 Lab Values Laboratory Tests Test 04/01/18 03:10 04/01/18 03:12 Urine Collection Type Unknown Urine Color Yellow Urine Clarity Clear Urine pH 6.0 Urine Specific [place] 1.015 Urine Protein Negative mg/dL (NEG-TRACE) Urine Glucose (UA) Negative mg/dL (NEG) Urine Ketones (Stick) Negative mg/dL (NEG) Urine Blood Negative (NEG) Urine Nitrite Negative (NEG) Urine Bilirubin Negative (NEG) Urine Urobilinogen Dipstick 0.2 mg/dL (0.2 mg/dL) Urine Leukocyte Esterase Negative (NEG) Urine RBC 0 /HPF (0-2) Urine WBC 0 /HPF (0-4) Urine Squamous Epithelial Cells Few /LPF Urine Bacteria 0 /HPF (0-FEW) Urine Mucus Slight /LPF POC Urine HCG, Qualitative Hcg negative (Negative) EKG EKG [] Radiology/Procedures Radiology/Procedures [] Course & Med Decision Making Course & Med Decision Making Pertinent Labs and Imaging studies reviewed. (See chart for details) [] Dragon Disclaimer Dragon Disclaimer This electronic medical record was generated, in whole or in part, using a voice recognition dictation system. Departure Departure Impression: Primary Impression: Screen for STD (sexually transmitted disease) Additional Impression: Skin excoriation Disposition: HOME, SELF-CARE Condition: STABLE Referrals: BELTRAN MORRISSEY MD (PCP) Patient Instructions: Sexually Transmitted Disease, [id number], Wound Care, [id number] Additional Instructions: Follow-up with your primary care provider in the next few days. Problem Qualifiers VANESA HERNANDEZ Jr. DO Apr 01, 2018 03:43
== END 2018-04-01 04:05 | disposition home or self-care (01) ==
LOC: ER 01:43
DX: F42.4 Excoriation (skin-picking) disorder (principal); Z11.3 Encounter for screening for infections with a predominantly sexual mode of transmission; I10 Essential (primary) hypertension; F31.9 Bipolar disorder, unspecified; Z88.0 Allergy status to penicillin
CPT/HCPCS: 81001; 81025; 87491; 87591; 96372; 99284; J0696; Q0144

== ENCOUNTER 2018-12-30 00:26 | Emergency (ER) | payer MEDICARE ==
[~2018-12-30] VITALS: Ht 167.6 cm; Wt 80.3 kg
[~2018-12-30 00:26] MED LIST changes: +ALBU2.5V8 INH; -PROAIR HFA8.5 GM INH
[2018-12-30 02:20] VITALS: BP 135/89
[2018-12-30] MEDS ORDERED: OLAN10TA3 PO (02:50)
[2018-12-30] MEDS ORDERED: OLANZapine 5 MG TABLET PO ONE (03:00)
[2018-12-30] MEDS ORDERED: KETOROLAC 60 MG/2 ML VIAL. IM ONE (03:15)
--- NOTE | 2018-12-30 03:27 | PHYS DOC ---
Past Medical History Past Medical History: Hypertension Additional Past Medical Histor: BIPOLAR, DEPRESSION Past Surgical History: Additional Past Surgical Histo: right arm wound Alcohol Use: Occasionally Drug Use: None Adult General Chief Complaint Chief Complaint: GENERALIZED BODY ACHES HPI HPI Patient is a 43 year old female with history of bipolar, hypertension and chronic back and hip pain who presents with complaints of chronic left hip pain and request for medication refill. Patient is currently out of Zyprexa this had difficulty sleeping. Denies chest pain palpitations, shortness of breath. No HI, SI, hallucinations delusions or paranoia reported. Also reports chronic left hip pain poorly controlled. No other acute symptoms or complaints. Last menstrual period was 1 month. Patient is not currently sexually active. [] Review of Systems Review of Systems Review symptoms as per history of present illness. All other review symptoms are negative. All other systems were reviewed and found to be within normal limits, except as documented in this note. Current Medications Current Medications Current Medications Medications (Trade) Dose Ordered Sig/Fiorella Start Time Stop Time Status Last Admin Dose Admin Ketorolac Tromethamine (Toradol Im) 60 mg 1X ONCE 12/30/18 03:15 12/30/18 03:16 DC 12/30/18 02:57 60 MG Olanzapine (ZyPREXA) 10 mg 1X ONCE 12/30/18 03:00 12/30/18 03:01 DC 12/30/18 02:54 10 MG Allergies Allergies Allergies Coded Allergies Type Severity Reaction Last Updated Verified Penicillins Allergy Intermediate Rash 09/26/15 Yes Physical Exam Physical Exam Constitutional: Well developed, well nourished, no acute distress, non-toxic appearance. [] HENT: Normocephalic, atraumatic, bilateral external ears normal, oropharynx moist, no oral exudates, nose normal. [] Eyes: PERRLA, EOMI, conjunctiva normal, no discharge. [] Neck: Normal range of motion, no tenderness, supple, no stridor. [] Cardiovascular:Heart rate regular rhythm, no murmur [] Lungs & Thorax: Bilateral breath sounds clear to auscultation [] Abdomen: Bowel sounds normal, soft, no tenderness. [] Skin: Warm, dry, no erythema, no rash. [] Back: No tenderness,. [] Extremities: No tenderness,ROM intact, no edema. [] Neurologic: Alert and oriented X 3, normal motor function, normal sensory function, no focal deficits noted. [] Psychologic: Affect, anxious, no HI or SI. [] Current Patient Data Vital Signs Vital Signs Date Time Temp Pulse Resp B/P (MAP) Pulse Ox O2 Delivery O2 Flow Rate FiO2 12/30/18 02:20 98.1 89 18 135/89 (104) 99 Room Air 98.1 EKG EKG [] Radiology/Procedures Radiology/Procedures [] Course & Med Decision Making Course & Med Decision Making Pertinent Labs and Imaging studies reviewed. (See chart for details) [Patient given evening dose of Zyprexa and IM pain shot. Zyprexa prescription refill. Instructions follow-up with PCP/counselor. Return precautions reviewed.] Dragon Disclaimer Cleopatra Disclaimer This electronic medical record was generated, in whole or in part, using a voice recognition dictation system. Departure Departure Impression: Primary Impression: Chronic leg pain Additional Impression: Medication refill Disposition: HOME, SELF-CARE Condition: GOOD Patient Instructions: Medical Screening Exam, Chronic Back Pain Additional Instructions: Please refill medications prescribed and schedule follow-up appointment next week for your PCP for reevaluation. Scripts Olanzapine (ZYPREXA) 10 Mg Tablet 1 TAB PO QHS PRN for ANXIETY / AGITATION, #30 TAB 1 Refill Prov: ARMANI MILNER DO 12/30/18 Problem Qualifiers ARMANI MILNER DO December 30, 2018 03:27
== END 2018-12-30 03:10 | disposition home or self-care (01) ==
LOC: ER 00:26
DX: G89.29 Other chronic pain (principal); M25.552 Pain in left hip; M54.89 Other dorsalgia; Z76.0 Encounter for issue of repeat prescription; I10 Essential (primary) hypertension; F31.9 Bipolar disorder, unspecified; Z88.0 Allergy status to penicillin
CPT/HCPCS: 96372; 99283; J1885

== ENCOUNTER 2019-01-07 23:53 | Emergency (ER) | payer OTHER, MEDICAID ==
[~2019-01-07] VITALS: Ht 165.1 cm; Wt 80.3 kg
[2019-01-07 23:53] VITALS: BP 135/71
[~2019-01-07 23:53] MED LIST changes: +OLAN10TA3 PO
[2019-01-08] MEDS ORDERED: MELO7.5T29 PO (00:10)
[2019-01-08] MEDS ORDERED: OLAN5TAB3 PO (00:10)
--- NOTE | 2019-01-08 00:10 | PHYS DOC ---
Past Medical History Past Medical History: Hypertension Additional Past Medical Histor: BIPOLAR, DEPRESSION Past Surgical History: Additional Past Surgical Histo: right arm wound Alcohol Use: Occasionally Drug Use: None Adult General Chief Complaint Chief Complaint: Neck Pain HPI HPI Patient is a 43 year old F [facility] diffuse body aches, mostly in her thighs and in her neck. When I asked what was going on she replied "same thing as always, they know what I come in for". Pt states she is living with her mother and the house is cold and with the rainy weather and cold house she is aching more then usual. When I asked what her underlying diagnosis was causing all this pain she said "I don't know, doctors tell me different stuff but I don't believe them". Pt states she was told at one time many years ago that she Multiple Sclerosis but that she doesn't believe them. Pt is alert and oriented and requested a single dose of her Zyprexa and something for pain. In review of her records, she does carry a diagnosis of Bipolar and Fibromyalgia. Review of Systems Review of Systems Constitutional: Denies fever or chills Respiratory: Denies cough or shortness of breath Cardiovascular: Denies chest pain GI: Denies abdominal pain, nausea, vomiting, bloody stools or diarrhea Musculoskeletal: Reports diffuse neck and low back and B thigh pain. Integument: Denies rash or skin lesions Neurologic: Denies headache, focal weakness or sensory changes Endocrine: Denies polyuria or polydipsia All other systems were reviewed and found to be within normal limits, except as documented in this note. Current Medications Current Medications Current Medications Medications (Trade) Dose Ordered Sig/Fiorella Start Time Stop Time Status Last Admin Dose Admin Ketorolac Tromethamine (Toradol Im) 60 mg 1X ONCE 01/08/19 00:15 01/08/19 00:16 DC 01/08/19 00:19 60 MG Olanzapine (ZyPREXA) 5 mg 1X ONCE 01/08/19 00:15 01/08/19 00:16 DC 01/08/19 00:18 5 MG Allergies Allergies Allergies Coded Allergies Type Severity Reaction Last Updated Verified Penicillins Allergy Intermediate Rash 09/26/15 Yes Physical Exam Physical Exam Constitutional: Well developed, well nourished, no acute distress, non-toxic appearance. Neck: Normal range of motion, supple. Perispinous tenderness B, no vertebral point tenderness. Cardiovascular:Heart rate regular rhythm, no murmur Lungs & Thorax: Bilateral breath sounds clear to auscultation Abdomen: Bowel sounds normal, soft, no tenderness, no masses, no pulsatile masses. Skin: Warm, dry, no erythema, no rash. Back: No tenderness, no CVA tenderness. Extremities: Tenderness of B thighs with palpation, no contusion or erythema. Neurologic: Alert and oriented X 3, normal motor function, normal sensory function, no focal deficits noted. Psychologic: Affect normal, judgement normal, mood normal. Current Patient Data Vital Signs Vital Signs Date Time Temp Pulse Resp B/P (MAP) Pulse Ox O2 Delivery O2 Flow Rate FiO2 01/07/19 23:53 98.0 71 20 135/71 (92) 98 Room Air 98.0 EKG EKG [] Radiology/Procedures Radiology/Procedures [] Course & Med Decision Making Course & Med Decision Making Pertinent Labs and Imaging studies reviewed. (See chart for details) Pt given a shot of Toradol and a PO Zyprexa. She reports feeling better and was discharged home with instructions to follow up with PCP. Dragon Disclaimer Dragon Disclaimer This electronic medical record was generated, in whole or in part, using a voice recognition dictation system. Departure Departure Impression: Primary Impression: Myalgia and myositis Disposition: 01 HOME, SELF-CARE Condition: IMPROVED Referrals: BELTRAN MORRISSEY MD (PCP) Patient Instructions: Myalgia, Adult Additional Instructions: Rest, push fluids, heating pad and close follow up with PCP. Scripts Olanzapine (ZYPREXA) 5 Mg Tablet 1 TAB PO QHS, #14 TAB 1 Refill Prov: MARISOL DIXON 01/08/19 Meloxicam (MELOXICAM) 7.5 Mg Tablet 1 TAB PO DAILY, #30 TAB 2 Refills Prov: MARISOL DIXON 01/08/19 MARISOL DIXON January 08, 2019 00:10
[2019-01-08] MEDS ORDERED: KETOROLAC 60 MG/2 ML VIAL. IM ONE (00:15)
[2019-01-08] MEDS ORDERED: OLANZapine 5 MG TABLET PO ONE (00:15)
== END 2019-01-08 00:26 | disposition home or self-care (01) ==
LOC: ER 23:53
DX: M60.89 Other myositis, multiple sites (principal); M54.2 Cervicalgia; M79.652 Pain in left thigh; M79.651 Pain in right thigh; M54.5 Low back pain; I10 Essential (primary) hypertension; F31.9 Bipolar disorder, unspecified; Z98.890 Other specified postprocedural states; Z88.0 Allergy status to penicillin
CPT/HCPCS: 96372; 99283; J1885

== ENCOUNTER 2019-03-31 03:25 | Emergency (ER) | payer OTHER, MEDICAID ==
[~2019-03-31] VITALS: Ht 157.5 cm; Wt 68.5 kg
[~2019-03-31 03:25] MED LIST changes: +MELO7.5T29 PO; +OLAN5TAB3 PO
[2019-03-31 03:32] VITALS: BP 125/83
[2019-03-31] MEDS ORDERED: ORPHENADRINE CITRATE 60 MG/2 ML VIAL. IM ONE (04:00)
[2019-03-31] MEDS ORDERED: DEXAMETHASONE 4 MG TABLET PO ONE (04:00)
[2019-03-31] MEDS ORDERED: ORPH100T PO (04:01)
--- NOTE | 2019-03-31 04:01 | PHYS DOC ---
Past Medical History Past Medical History: No Pertinent History Additional Past Medical Histor: BIPOLAR, DEPRESSION Past Surgical History: Additional Past Surgical Histo: right arm wound Alcohol Use: Occasionally Drug Use: None Adult General Chief Complaint Chief Complaint: TONGUE SWELLING/INJURY [facility] HPI Patient is a 43 year old [f__sex] who presents with [] Review of Systems Review of Systems Constitutional: Denies fever or chills [] Eyes: Denies change in visual acuity, redness, or eye pain [] HENT: Denies nasal congestion or sore throat [] Respiratory: Denies cough or shortness of breath [] Cardiovascular: No additional information not addressed in HPI [] GI: Denies abdominal pain, nausea, vomiting, bloody stools or diarrhea [] : Denies dysuria or hematuria [] Musculoskeletal: Denies back pain or joint pain [] Integument: Denies rash or skin lesions [] Neurologic: Denies headache, focal weakness or sensory changes [] Endocrine: Denies polyuria or polydipsia [] All other systems were reviewed and found to be within normal limits, except as documented in this note. Allergies Allergies Allergies Coded Allergies Type Severity Reaction Last Updated Verified Penicillins Allergy Intermediate Rash 09/26/15 Yes Physical Exam Physical Exam Constitutional: Well developed, well nourished, no acute distress, non-toxic appearance. [] HENT: Normocephalic, atraumatic, bilateral external ears normal, oropharynx moist, no oral exudates, nose normal. [] Eyes: PERRLA, EOMI, conjunctiva normal, no discharge. [] Neck: Normal range of motion, no tenderness, supple, no stridor. [] Cardiovascular:Heart rate regular rhythm, no murmur [] Lungs & Thorax: Bilateral breath sounds clear to auscultation [] Abdomen: Bowel sounds normal, soft, no tenderness, no masses, no pulsatile masses. [] Skin: Warm, dry, no erythema, no rash. [] Back: No tenderness, no CVA tenderness. [] Extremities: No tenderness, no cyanosis, no clubbing, ROM intact, no edema. [] Neurologic: Alert and oriented X 3, normal motor function, normal sensory function, no focal deficits noted. [] Psychologic: Affect normal, judgement normal, mood normal. [] Current Patient Data Vital Signs Vital Signs Date Time Temp Pulse Resp B/P (MAP) Pulse Ox O2 Delivery O2 Flow Rate FiO2 03/31/19 03:32 98.1 92 16 125/83 (97) 99 Room Air 98.1 Lab Values Laboratory Tests Test 03/31/19 03:50 POC Urine HCG, Qualitative Hcg negative (Negative) EKG EKG [] Radiology/Procedures Radiology/Procedures [] Course & Med Decision Making Course & Med Decision Making Pertinent Labs and Imaging studies reviewed. (See chart for details) [] Dragon Disclaimer Dragon Disclaimer This electronic medical record was generated, in whole or in part, using a voice recognition dictation system. Departure Departure Impression: Primary Impression: Chronic pain Additional Impression: Feared condition not demonstrated Disposition: 01 HOME, SELF-CARE Condition: STABLE Referrals: BELTRAN MORRISSEY MD (PCP) Patient Instructions: Chronic Pain, Chronic Pain Management-Brief Scripts Orphenadrine Citrate (ORPHENADRINE CITRATE) 100 Mg Tablet.er 100 MG PO BID PRN for MUSCLE PAIN, #14 Prov: GAURANG BUNN DO 03/31/19 Problem Qualifiers Primary Impression: Chronic pain Chronic pain type: other chronic pain Qualified Codes: G89.29 - Other chronic pain GAURANG BUNN DO Mar 31, 2019 04:01
[2019-03-31] MEDS ORDERED: DEXAMETHASONE 4 MG TABLET ONE (04:08)
[2019-03-31] MEDS ORDERED: ORPHENADRINE CITRATE 60 MG/2 ML VIAL. ONE (04:08)
== END 2019-03-31 04:18 | disposition home or self-care (01) ==
LOC: ER 03:25
DX: G89.29 Other chronic pain (principal); Z71.1 Person with feared health complaint in whom no diagnosis is made; M54.2 Cervicalgia; K14.8 Other diseases of tongue; F31.9 Bipolar disorder, unspecified; Z88.0 Allergy status to penicillin
CPT/HCPCS: 81025; 96372; 99283; J2360; J8540

== ENCOUNTER → 2019-04-11 | Outpatient (CLI) | payer OTHER, MEDICAID ==
[2019-03-31 03:32] VITALS: BP 125/83
[~2019-04-11] MED LIST changes: +GADOTERATE 7.5 MMOL/15ML VIAL. IVP ONE; +ORPH100T PO
--- NOTE | 2019-04-11 13:45 | KCIC ---
BRAIN WO/W CONTRAST History: Tension headache. Fatigue. Muscle cramps. Multiple sclerosis. Technique: Multiplanar, multi sequential pre and postcontrast MR imaging was performed of the brain. Contrast: 15 mL Dotarem. Comparison: None Findings: No acute infarct. No intracranial hemorrhage. No mass effect. No hydrocephalus. Punctate T2/FLAIR hyperintensity within the frontal white matter, can be seen in normal individuals. Imaged orbits are unremarkable. Imaged paranasal sinuses and mastoid air cells are clear. Impression: 1. No acute intracranial abnormality. 2. Punctate nonspecific white matter lesions, can be seen in normal individuals. Electronically signed by: Carrington Gonzalez DO (04/11/2019 1:43 PM) [id number]
== END | disposition home or self-care (01) ==
LOC: KCIC MRI 10:58
PROVIDERS: ATTEND Psychiatry & Neurology Neurology with Special Qualifications in Child Neurology
DX: G44.209 Tension-type headache, unspecified, not intractable (principal); G35 Multiple sclerosis; I10 Essential (primary) hypertension; J45.909 Unspecified asthma, uncomplicated; F17.200 Nicotine dependence, unspecified, uncomplicated; Z88.0 Allergy status to penicillin
CPT/HCPCS: 70553; A9575

== ENCOUNTER 2019-06-06 02:52 | Emergency (ER) | payer OTHER, MEDICAID ==
[~2019-06-06] VITALS: Ht 167.6 cm; Wt 68.0 kg
[~2019-06-06 02:52] MED LIST changes: -GADOTERATE 7.5 MMOL/15ML VIAL. IVP ONE
[2019-06-06 02:55] VITALS: BP 134/75
--- NOTE | 2019-06-06 03:06 | PHYS DOC ---
Past Medical History Past Medical History: No Pertinent History Additional Past Medical Histor: BIPOLAR, DEPRESSION Past Surgical History: Additional Past Surgical Histo: right arm wound Alcohol Use: Occasionally Drug Use: None Adult General Chief Complaint Chief Complaint: MECHANICAL FALL [facility] HPI 43-year-old female presents to the emergency department via EMS after a fall. Patient states she has left hip pain. She as well as describes history of asthma and states she has had some shortness of breath. Patient states she had an i nhaler however left on the bus. She was able to ambulate according to EMS after her fall. Movements make her pain worse. She denies any fever, nausea, vomiting. Patient describes some cough however nonproductive. All other ROS negative unless documented in HPI Review of Systems Review of Systems See Above Allergies Allergies Allergies Coded Allergies Type Severity Reaction Last Updated Verified Penicillins Allergy Intermediate Rash 09/26/15 Yes Physical Exam Physical Exam See Above Constitutional: Well developed, well nourished, no acute distress, non-toxic appearance. [] HENT: Normocephalic, atraumatic, bilateral external ears normal, oropharynx moist, no oral exudates, nose normal. [] Eyes: PERRLA, EOMI, conjunctiva normal, no discharge. [] Cardiovascular:Heart rate regular rhythm, no murmur [] Lungs & Thorax: Bilateral breath sounds clear to auscultation [] Skin: Warm, dry, no erythema, no rash. [] Back: No tenderness, no CVA tenderness. [] Extremities: TTP left hip, no edema appreciated Neurologic: Alert and oriented X 3, no focal deficits noted. [] Psychologic: Affect normal, judgement normal, mood normal. [] EKG EKG [] Radiology/Procedures Radiology/Procedures Xray reviewed, no evidence of acute fracture appreciated to left hip Xray reviewed, no evidence of acute consolidation, effusion[] Course & Med Decision Making Course & Med Decision Making Pertinent Labs and Imaging studies reviewed. (See chart for details) []43-year-old female presents to the emergency department via EMS after a fall. Patient states she has left hip pain. She as well as describes history of asthma and states she has had some shortness of breath. Patient states she had an inhaler however left on the bus. She was able to ambulate according to EMS after her fall. Movements make her pain worse. She denies any fever, nausea, vomiting. Patient describes some cough however nonproductive. Imaging reviewed without evidence of acute fracture or consolidation Cleopatra Disclaimer Dragon Disclaimer This electronic medical record was generated, in whole or in part, using a voice recognition dictation system. Departure Departure Impression: Primary Impression: Left hip pain Additional Impression: Cough Disposition: HOME, SELF-CARE Condition: STABLE Referrals: BELTRAN MORRISSEY MD (PCP) Patient Instructions: Hip Pain Additional Instructions: Recommend follow up with PCP 3 - 5 days Return to the ER with worsening symptoms, intractable pain, fever, altered mental status Tylenol/Motrin as needed for pain Albuterol rx provided Scripts Albuterol Sulfate (VENTOLIN HFA INHALER) 18 Gm Hfa.aer.ad 2 PUFF INH Q4HRS for FOR ASTHMA, #1 INHALER 0 Refills Prov: ANTWAN NESS MD 06/06/19 Problem Qualifiers ANTWAN NESS MD Jun 06, 2019 03:06
[2019-06-06] MEDS ORDERED: VENTOLIN HFA18 GM INH (03:24)
--- NOTE | 2019-06-06 07:47 | RAD ---
Examination: HIP LEFT 2 VIEW History: Left hip pain, fall Comparison/Correlation: None Findings: Frontal view and frog-leg lateral view of the left hip and portable technique was performed. Left hip joint space is adequate. No acute fracture or bony destruction. Soft tissues are unremarkable. Left sacroiliac joint space is normal. Impression: No acute processes. Consider further imaging for occult process is a persistent concern. Electronically signed by: Jamir Banegas MD (06/06/2019 7:44 AM) [facility]
--- NOTE | 2019-06-06 07:47 | RAD ---
CHEST AP ONLY Clinical Indication: Fall, pain Comparison: None. Findings: Upright portable frontal view chest was obtained. The cardiomediastinal silhouette is normal. Lungs are clear. There is no pneumothorax. No pleural effusion is appreciated. No acute bone abnormality. IMPRESSION: No acute cardiopulmonary process. Electronically signed by: Jamir Banegas MD (06/06/2019 7:44 AM) [facility]
== END 2019-06-06 03:44 | disposition home or self-care (01) ==
LOC: ER 02:52
DX: M25.552 Pain in left hip (principal); R05 Cough; J45.909 Unspecified asthma, uncomplicated; Z98.890 Other specified postprocedural states; Z88.0 Allergy status to penicillin; W18.39XA Other fall on same level, initial encounter; Y93.01 Activity, walking, marching and hiking; Y92.89 Other specified places as the place of occurrence of the external cause; Y99.8 Other external cause status
CPT/HCPCS: 71045; 73502; 99284

== ENCOUNTER 2019-11-01 03:35 | Emergency (ER) | payer OTHER, MEDICAID ==
[~2019-11-01] VITALS: Ht 162.6 cm; Wt 64.5 kg
[~2019-11-01 03:35] MED LIST changes: +VENTOLIN HFA18 GM INH
[2019-11-01 04:16] VITALS: BP 109/71
--- NOTE | 2019-11-01 04:56 | PHYS DOC ---
Past Medical History Past Medical History: No Pertinent History Additional Past Medical Histor: BIPOLAR, DEPRESSION, MS Past Surgical History: , Tubal ligation Additional Past Surgical Histo: right arm wound Smoking Status: Current Some Day Smoker Alcohol Use: Occasionally Drug Use: None Adult General Chief Complaint Chief Complaint: HIP PAIN HPI HPI 43-year-old female presents to the emergency Department complaints of left hip pain. Patient states his pain is been ongoing for 4-5 months without Injury. She is requesting a pain shot, Vicodin, Valium. Upon initial arrival patient was yelling agitated. Patient states his pain is acute on chronic. Patient is ambulating. Denies any numbness or tingling to her lower extremities patient denies any fever All other ROS negative unless documented in HPI Review of Systems Review of Systems See Above Current Medications Current Medications Current Medications Medications (Trade) Dose Ordered Sig/Fiorella Start Time Stop Time Status Last Admin Dose Admin Acetaminophen (Tylenol) 1,000 mg 1X ONCE 11/01/19 05:00 11/01/19 05:01 UNV Allergies Allergies Allergies Coded Allergies Type Severity Reaction Last Updated Verified Penicillins Allergy Intermediate Rash 09/26/15 Yes Physical Exam Physical Exam See Above Constitutional: Well developed, well nourished, no acute distress, non-toxic appearance. [] HENT: Normocephalic, atraumatic, bilateral external ears normal, oropharynx moist, no oral exudates, nose normal. [] Eyes: PERRLA, EOMI, conjunctiva normal, no discharge. [] Skin: Warm, dry, no erythema, no rash. [] Back: No tenderness, no CVA tenderness. [] Extremities: No tenderness, no cyanosis, no clubbing, ROM intact, no edema, patient ambulating [] Neurologic: Alert and oriented X 3, no focal deficits noted. [] Psychologic: Affect normal, judgement normal, mood normal. [] Current Patient Data Vital Signs Vital Signs Date Time Temp Pulse Resp B/P (MAP) Pulse Ox O2 Delivery O2 Flow Rate FiO2 11/01/19 04:16 97.5 98 20 109/71 (84) 98 Room Air 97.5 EKG EKG [] Radiology/Procedures Radiology/Procedures [] Course & Med Decision Making Course & Med Decision Making Pertinent Labs and Imaging studies reviewed. (See chart for details) []43-year-old female presents to the emergency Department complaints of left hip pain. Patient states his pain is been ongoing for 4-5 months without Injury. She is requesting a pain shot, Vicodin, Valium. Upon initial arrival patient was yelling agitated. Patient states his pain is acute on chronic. Patient is ambulating. Denies any numbness or tingling to her lower extremities patient denies any fever Tylenol 1000mg po x 1 recommend dc home Follow up with PCP Cleopatra Disclaimer Cleopatra Disclaimer This electronic medical record was generated, in whole or in part, using a voice recognition dictation system. Departure Departure Impression: Primary Impression: Left hip pain Disposition: HOME, SELF-CARE Condition: STABLE Referrals: BELTRAN MORRISSEY MD (PCP) Patient Instructions: Hip Pain Additional Instructions: Follow up with PCP Tylenol/Motrin as needed for pain No plans for imaging given chronic pain without new injury ANTWAN NESS MD Nov 01, 2019 04:56
[2019-11-01] MEDS ORDERED: ACETAMINOPHEN 500 MG TABLET PO ONE (05:15)
== END 2019-11-01 05:00 | disposition home or self-care (01) ==
LOC: ER 03:35
DX: M25.552 Pain in left hip (principal); F32.9 Major depressive disorder, single episode, unspecified; F17.200 Nicotine dependence, unspecified, uncomplicated; Z98.51 Tubal ligation status; Z98.890 Other specified postprocedural states; Z88.0 Allergy status to penicillin
CPT/HCPCS: 99284